=== PATIENT | male | born 1975 | race African-American/Black ===

== ENCOUNTER 2016-11-25 10:04 | Inpatient (IN) | payer MEDICARE, OTHER ==
[2016-11-25] VITALS (12 sets, daily range): BP systolic 98–128; BP diastolic 42–88
[~2016-11-25] VITALS: Ht 193 cm; Wt 121.1 kg
[~2016-11-25 10:04] MED LIST: ALPR0.25 PO; FURO-151 PO; LIP40 PO; LOVENOX; NIFE30TA43 PO; PHEN100C4 PO; QUET200T PO; SIMV10TA2 PO
[2016-11-25] MEDS ORDERED: LIDOCAINE HCL/PF 1% 2ML VIAL ONE (10:15)
[2016-11-25] MEDS ORDERED: ONDANSETRON HCL 4MG/2ML VIAL IV STA (10:15)
[2016-11-25 10:38] LABS: BG BASE EXCESS 3.4 mmol/L (-2.0-2.0); BG CARBOXYHEMOGLOBIN 3.2 % (0.5-1.5); BG DEOXYHEMOGLOBIN 4.9 % (0.0-5.0); BG METHEMOGLOBIN 0.3 % (0.0-1.5); BG OXYGEN SATURATION 94.9 % (92.0-98.5); BG OXYHEMOGLOBIN 91.6 % (94.0-97.0); BG PCO2 55.2 mmHg (35.0-45.0); BG PH 7.353 (7.350-7.450); BG PO2 76.5 mmHg (75.0-100.0); BG SAMPLE SITE RIGHT RADIAL; BG TOTAL HEMOGLOBIN 11.2 g/dL (12.0-18.0); BG VENT MODE ROOM AIR
[2016-11-25 11:10] LABS: BASOPHILS % 0.7 % (0.0-2.0); EOSINOPHILS % 3.1 % (0.0-5.0); HEMATOCRIT. 30.4 % (42.0-52.0); HEMOGLOBIN. 9.6 g/dL (14.0-18.0); LYMPHOCYTES % 18.6 % (20.0-50.0); MEAN CORPUSCULAR VOLUME 75.8 fL (80.0-94.0); MEAN PLATELET VOLUME 7.8 fl (7.4-10.4); MONOCYTES % 7.4 % (2.0-8.0); NEUTROPHILS % 70.2 % (40.0-76.0); PLATELET 178 x1000/uL (130-400); RED BLOOD CELL COUNT 4.01 mill/uL (4.7-6.1); RED CELL DISTRIBUTION WIDTH 18.6 % (11.6-14.6)
[2016-11-25 11:23] LABS: INR 1.1; PROTHROMBIN TIME 11.6 sec (9.4-11.6)
[2016-11-25 11:26] LABS: CARBON DIOXIDE 30 mEq/L (21-32); CHLORIDE 105 mEq/L (98-107); ETHANOL BLOOD < 10 mg/dL; TROPONIN I < 0.02 ng/mL (0.00-0.04)
[2016-11-25 11:31] LABS: D-DIMER 5.06 mg/L FEU (<0.50)
[2016-11-25] MEDS ORDERED: LIDOCAINE HCL 1% 20ML VIAL (Pyxis) INJ ONE (11:46)
[2016-11-25] MEDS ORDERED: SODIUM BICARBONATE 4% (2.4MEQ) 5ML VIAL IV ONE (11:47)
[2016-11-25] MEDS ORDERED: MORPHINE SULFATE 4 MG/ML CPJ (NOT FOR IM USE) IV ONE (12:00)
[2016-11-25] MEDS ORDERED: ENOXAPARIN 120MG/0.8ML SYR SUBCUT ONE (12:45)
[2016-11-25] MEDS ORDERED: DIPHENHYDRAMINE 50MG/ML VIAL IV PRN (13:15)
[2016-11-25] MEDS ORDERED: CLONIDINE 0.1MG TABLET PO PRN ×2 (13:15→15:30)
[2016-11-25] MEDS ORDERED: IPRATROPIUM/ALBUTEROL 0.5-3(2.5)MG/3ML NEB INH PRN (13:15)
[2016-11-25] MEDS ORDERED: ONDANSETRON HCL 4MG/2ML VIAL IV PRN (13:15)
[2016-11-25] MEDS ORDERED: CLONIDINE 0.2MG TABLET PO PRN (15:15)
[2016-11-25] MEDS: NIFEDIPINE XL 30MG TAB PO SCH (15:15)
[2016-11-25] MEDS ORDERED: IPRATROPIUM/ALBUTEROL 0.5-3(2.5)MG/3ML NEB HHN PRN (15:30)
[2016-11-25] MEDS ORDERED: NICOTINE 21MG PATCH TD SCH (16:00)
[2016-11-25] MEDS: SENNOSIDES/DOCUSATE SOD 8.6/50MG TABLET PO SCH (16:00)
[2016-11-25 16:38] LABS: *AMPHETAMINES SCREEN URINE NEGATIVE (NEGATIVE); *BARBITURATES SCREEN URINE NEGATIVE (NEGATIVE); *BENZODIAZEPINES SCREEN URINE NEGATIVE (NEGATIVE); *COCAINE SCREEN URINE NEGATIVE (NEGATIVE); CANNABINOID URINE SCREEN NEGATIVE (NEGATIVE); METHADONE URINE SCREEN NEGATIVE (NEGATIVE); OPIATES URINE SCREEN PRESUMTIVE POSITIVE (NEGATIVE); PHENCYCLIDINE URINE SCREEN NEGATIVE (NEGATIVE)
[2016-11-25 16:46] LABS: CLARITY URINE CLEAR (CLEAR); COLOR URINE YELLOW (YELLOW); GLUCOSE URINE NEGATIVE (NEGATIVE); KETONES URINE NEGATIVE (NEGATIVE); LEUKOCYTE ESTERASE URINE NEGATIVE (NEGATIVE); NITRITE URINE NEGATIVE (NEGATIVE); OCCULT BLOOD URINE NEGATIVE (NEGATIVE); PROTEIN URINE NEGATIVE (NEGATIVE); SPECIFIC GRAVITY URINE 1.025 (1.005-1.030)
[2016-11-25] MEDS: CLOPIDOGREL 75MG TABLET PO SCH (17:35)
[2016-11-25] MEDS: MORPHINE SULFATE 2 MG/ML CPJ (NOT FOR IM USE) IV PRN ×2 (19:41→23:44)
[2016-11-25] MEDS: IPRATROPIUM/ALBUTEROL 0.5-3(2.5)MG/3ML NEB HHN SCH (21:14)
[2016-11-25] MEDS ORDERED: COR6 PO (22:57)
[2016-11-25] MEDS ORDERED: MEDICATION NOT ON FORMULARY EA (Simvastatin (Zocor) 20 MG) PO SCH (23:00)
[2016-11-25] MEDS ORDERED: MEDICATION NOT ON FORMULARY EA (Quetiapine Fumarate (Seroquel) 400 MG) PO SCH (23:00)
[2016-11-25] MEDS ORDERED: ATORVASTATIN CALCIUM 10MG TABLET PO SCH (23:19)
[2016-11-25] MEDS ORDERED: QUETIAPINE FUMARATE 100MG TABLET PO SCH (23:43)
[2016-11-25] MEDS: FUROSEMIDE 40MG TABLET PO SCH (23:52)
[2016-11-25] MEDS: CARVEDILOL 6.25 MG TABLET PO SCH (23:52)
[2016-11-25] MEDS: PHENYTOIN SODIUM EXTENDED 100MG CAPSULE PO SCH (23:53)
[2016-11-26] VITALS (12 sets, daily range): BP systolic 95–129; BP diastolic 54–86
[2016-11-26] MEDS: IPRATROPIUM/ALBUTEROL 0.5-3(2.5)MG/3ML NEB HHN SCH ×4 (01:58→21:18)
[2016-11-26 07:42] LABS: CARBON DIOXIDE 34 mEq/L (21-32); CHLORIDE 106 mEq/L (98-107); HDL CHOLESTEROL 50 mg/dL (40-59); LDL CHOLESTEROL 132 mg/dL (5-100)
[2016-11-26 07:49] LABS: BASOPHILS % 0.4 % (0.0-2.0); EOSINOPHILS % 3.1 % (0.0-5.0); HEMATOCRIT. 26.5 % (42.0-52.0); HEMOGLOBIN. 8.4 g/dL (14.0-18.0); LYMPHOCYTES % 23.1 % (20.0-50.0); MEAN CORPUSCULAR HEMOGLOBIN 24.4 pg (28.0-32.0); MEAN CORPUSCULAR VOLUME 76.4 fL (80.0-94.0); MEAN PLATELET VOLUME 8.4 fl (7.4-10.4); MONOCYTES % 7.4 % (2.0-8.0); PLATELET 158 x1000/uL (130-400); RED BLOOD CELL COUNT 3.46 mill/uL (4.7-6.1); RED CELL DISTRIBUTION WIDTH 18.1 % (11.6-14.6)
[2016-11-26] MEDS ORDERED: NICOTINE 21MG PATCH TD SCH (09:00)
[2016-11-26] MEDS: NIFEDIPINE XL 30MG TAB PO SCH ×2 (09:00→20:24)
[2016-11-26] MEDS: CARVEDILOL 6.25 MG TABLET PO SCH (10:12)
[2016-11-26] MEDS: FUROSEMIDE 40MG TABLET PO SCH (10:12)
[2016-11-26] MEDS: SENNOSIDES/DOCUSATE SOD 8.6/50MG TABLET PO SCH (10:12)
[2016-11-26] MEDS: CLOPIDOGREL 75MG TABLET PO SCH (10:13)
[2016-11-26 13:19] LABS: TOTAL IRON BINDING CAPACITY 279 ug/dL (250-450)
[2016-11-26 13:41] LABS: VITAMIN B12 SERUM 368 pg/mL (211-911)
[2016-11-26] MEDS ORDERED: SORBITOL 70% SOLN 30ML PO NR (14:45)
[2016-11-26] MEDS: MORPHINE SULFATE 2 MG/ML CPJ (NOT FOR IM USE) IV PRN ×2 (14:58→20:16)
[2016-11-26] MEDS: BUDESONIDE 0.5MG/2ML NEB HHN SCH ×2 (15:08→21:17)
[2016-11-26 15:26] LABS: HEMATOCRIT 29.8 % (42.0-52.0); HEMOGLOBIN 9.5 g/dL (14.0-18.0)
[2016-11-26] MEDS ORDERED: SORBITOL 70% SOLN 30ML PO PRN (20:00)
[2016-11-26] MEDS: PHENYTOIN SODIUM EXTENDED 100MG CAPSULE PO SCH (20:30)
[2016-11-26 20:54] LABS: FOLIC ACID (FOLATE) SERUM 14.2 ng/mL (>5.38)
[2016-11-26] MEDS ORDERED: QUETIAPINE FUMARATE 100MG TABLET PO SCH (21:00)
[2016-11-26] MEDS ORDERED: ATORVASTATIN CALCIUM 20MG TABLET PO SCH (21:00)
[2016-11-26 23:35] LABS: HEMATOCRIT 28.8 % (42.0-52.0); HEMOGLOBIN 9.4 g/dL (14.0-18.0)
[2016-11-27] MEDS: IPRATROPIUM/ALBUTEROL 0.5-3(2.5)MG/3ML NEB HHN SCH (00:11)
[2016-11-27 01:56] VITALS: BP 123/75
[2016-11-27 04:07] VITALS: BP 116/72
[2016-11-27 05:54] VITALS: BP 115/73
[2016-11-27 07:43] LABS: CARBON DIOXIDE 31 mEq/L (21-32); CHLORIDE 106 mEq/L (98-107)
== END 2016-11-27 08:00 | disposition left against medical advice (07) | DRG 377 ==
LOC: ER 10:13 → 3WST 12:56 → EDBEDREQ 12:57 → ENRESERV 13:12 → EDBEDREQ 13:29 → 3WST 11-27 01:42
PROVIDERS: ADMIT Internal Medicine; ATTEND Internal Medicine
PROC: 02HV33Z Insertion of Infusion Device into Superior Vena Cava, Percutaneous Approach (ICD-10-PCS; principal; 2016-11-25)
PROC: B5181ZA Fluoroscopy of Superior Vena Cava using Low Osmolar Contrast, Guidance (ICD-10-PCS; 2016-11-25)
PROC: B548ZZA Ultrasonography of Superior Vena Cava, Guidance (ICD-10-PCS; 2016-11-25)
DX: K92.2 Gastrointestinal hemorrhage, unspecified (principal); J96.00 Acute respiratory failure, unspecified whether with hypoxia or hypercapnia; I82.411 Acute embolism and thrombosis of right femoral vein; I11.0 Hypertensive heart disease with heart failure; I50.9 Heart failure, unspecified; D50.9 Iron deficiency anemia, unspecified; E11.9 Type 2 diabetes mellitus without complications; I82.431 Acute embolism and thrombosis of right popliteal vein; I25.10 Atherosclerotic heart disease of native coronary artery without angina pectoris; E78.00 Pure hypercholesterolemia, unspecified; E78.5 Hyperlipidemia, unspecified; F17.210 Nicotine dependence, cigarettes, uncomplicated; F20.9 Schizophrenia, unspecified; F31.9 Bipolar disorder, unspecified; F41.9 Anxiety disorder, unspecified; G40.909 Epilepsy, unspecified, not intractable, without status epilepticus; K59.00 Constipation, unspecified; N28.9 Disorder of kidney and ureter, unspecified; Z53.21 Procedure and treatment not carried out due to patient leaving prior to being seen by health care provider; Z53.29 Procedure and treatment not carried out because of patient's decision for other reasons; Z86.711 Personal history of pulmonary embolism; Z86.718 Personal history of other venous thrombosis and embolism; I25.2 Old myocardial infarction; Z95.5 Presence of coronary angioplasty implant and graft; Z86.73 Personal history of transient ischemic attack (TIA), and cerebral infarction without residual deficits; Z88.6 Allergy status to analgesic agent; Z91.19 Patient's noncompliance with other medical treatment and regimen; Z88.8 Allergy status to other drugs, medicaments and biological substances; Z91.041 Radiographic dye allergy status; Z85.89 Personal history of malignant neoplasm of other organs and systems
CPT/HCPCS: 36415; 36569; 36600; 71010; 74000; 76937; 77001; 78580; 80053; 80061; 80185; 80305; 81003; 82270; 82375; 82607; 82728; 82746; 82805; 82962; 83540; 83550; 83605; 83690; 83735; 83880; 84484; 85014; 85018; 85025; 85379; 85610; 85730; 86850; 86900; 86920; 87040; 87086; 93005; 93970; 94640; 96372; 96374; 96375; 99291; C1725; G0482; J1650; J2270; J2405; J3490; J7620; J7626

== ENCOUNTER 2020-05-26 00:15 | Emergency (ER) | payer OTHER ==
[~2020-05-26] VITALS: Ht 190.5 cm; Wt 150.0 kg
[~2020-05-26 00:15] MED LIST changes: +COR6 PO
[2020-05-26] MEDS ORDERED: ASPIRIN 81MG TABLET PO ONE (01:15)
[2020-05-26] MEDS ORDERED: DIPHENHYDRAMINE 25MG CAPSULE PO ONE (01:15)
[2020-05-26] MEDS ORDERED: ENOXAPARIN 120MG/0.8ML SYR SUBCUT NR (01:45)
[2020-05-26 02:10] LABS: BASOPHILS % 0.7 % (0.0-2.0); EOSINOPHILS % 2.4 % (0.0-5.0); HEMATOCRIT. 34.9 % (42.0-52.0); HEMOGLOBIN. 11.5 g/dL (14.0-18.0); LYMPHOCYTES % 22.8 % (20.0-50.0); MEAN CORPUSCULAR HEMOGLOBIN 27.3 pg (28.0-32.0); MEAN CORPUSCULAR VOLUME 82.9 fL (80.0-94.0); MEAN PLATELET VOLUME 7.7 fl (7.4-10.4); MONOCYTES % 7.8 % (2.0-8.0); NEUTROPHILS % 66.3 % (40.0-76.0); PLATELET 162 x1000/uL (130-400); RED BLOOD CELL COUNT 4.21 mill/uL (4.7-6.1); RED CELL DISTRIBUTION WIDTH 16.5 % (11.6-14.6)
[2020-05-26 02:21] LABS: D-DIMER 1.01 mg/L FEU (<0.50); PROTHROMBIN TIME 11.2 sec (9.6-11.0)
[2020-05-26 02:22] LABS: CHLORIDE 110 mEq/L (98-107)
[2020-05-26 02:27] LABS: ETHANOL BLOOD < 10 mg/dL
[2020-05-26 03:40] VITALS: BP 162/94
[2020-05-26] MEDS ORDERED: APIX5TAB MT (04:35)
== END 2020-05-26 04:44 | disposition home or self-care (01) ==
LOC: ER 00:41
DX: I82.401 Acute embolism and thrombosis of unspecified deep veins of right lower extremity (principal); F17.200 Nicotine dependence, unspecified, uncomplicated; F14.10 Cocaine abuse, uncomplicated; F15.10 Other stimulant abuse, uncomplicated; I11.0 Hypertensive heart disease with heart failure; I50.9 Heart failure, unspecified; E11.9 Type 2 diabetes mellitus without complications; Z88.0 Allergy status to penicillin; Z88.6 Allergy status to analgesic agent; Z88.5 Allergy status to narcotic agent; Z88.8 Allergy status to other drugs, medicaments and biological substances; Z86.59 Personal history of other mental and behavioral disorders; Z86.73 Personal history of transient ischemic attack (TIA), and cerebral infarction without residual deficits
CPT/HCPCS: 36415; 71045; 80053; 80320; 83880; 84484; 85025; 85379; 85610; 85730; 93005; 96372; 99285; J1650; Q0163; G0480